=== PATIENT | male | born 1995 | race Caucasian/White ===

== ENCOUNTER 2025-01-02 19:21 | Emergency (ER) | payer SELFPAY ==
[2025-01-02] VITALS (17 sets, daily range): BP systolic 134–160; BP diastolic 84–89; PULSE 76–98; TEMP 36.9; O2SAT 98; BMI 31.5
--- NOTE | 2025-01-02 20:06 | ECG_ITS ---
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
--- NOTE | 2025-01-02 20:07 | ED.DIZZY1 ---
HPI - Dizziness General Chief Complaint: Dizziness Stated Complaint: DIZZINESS Time Seen by Provider: 01/02/25 20:00 Source: patient Mode of arrival: walk-in Limitations: language barrier History of Present Illness HPI Narrative: This 29-year-old male with no significant medical history presents for evaluation of dizziness and muscle spasms in his arms and legs. The patient works outside as a golf pro. He states he was outside all day today and despite drinking water and Gatorade he still became very dizzy. He feels better being inside were at school but is still having some muscle spasms. He denies any chest pain or shortness of breath. He has not passed out. He has no abdominal pain or back pain. He has not had any fever. He has no nausea vomiting or diarrhea. He denies any tobacco alcohol or drug use. Related Data Home Medications ?Medication ?Instructions ?Recorded ?Confirmed No Known Home Medications 01/02/25 01/02/25 Allergies Allergy/AdvReac Type Severity Reaction Status Date / Time No Known Drug Allergies Allergy Verified 01/02/25 19:39 Review of Systems ROS Status of ROS 10 or more systems reviewed and unremarkable except as noted in history and below Exam Narrative Exam Narrative: Vital signs and Nursing Notes reviewed: Patient is afebrile pulse is 98, blood pressure is minimally elevated 134/89, he is not hypoxic with pulse ox of 98% on room air General: Awake, alert, oriented, no acute distress, lying comfortably on the [id number] male, no distress noted he got excited HEENT: Normocephalic atraumatic, mucous membranes are slightly dry, no swelling of the tongue, uvula or pharyngeal soft tissues Chest: Lungs are clear to auscultation with good air entry, there is no wheezing rhonchi or rales appreciated no accessory muscle use, patient is speaking in complete sentences-no chest wall tenderness to palpation CVS: Regular rate and rhythm S1-S2, no murmurs rubs or gallops, pulses are brisk and equal bilaterally ABD: Soft, nondistended, nontender, no rebound guarding or rigidity, bowel sounds are normal, no pulsatile masses appreciated Extremities: Moving all extremities, no lower extremity tenderness or swelling noted, negative Homans' sign, pulses are brisk and equal bilaterally Skin: Normal in appearance without rash,pallor, petechiae or purpura Neuro: No focal deficits Constitutional Vital Signs, click to edit/add: Last Vital Signs Temp 98.4 F 01/02/25 19:31 Pulse 76 01/02/25 22:40 Resp 20 01/02/25 22:40 BP 160/84 H 01/02/25 22:03 Pulse Ox 98 01/02/25 19:31 O2 Del Method Room Air 01/02/25 19:31 Course Vital Signs Vital signs: Vital Signs Temperature 98.4 F 01/02/25 19:31 Pulse Rate 98 H 01/02/25 19:31 Respiratory Rate 16 01/02/25 19:31 Blood Pressure 134/89 01/02/25 19:31 Pulse Oximetry 98 01/02/25 19:31 Oxygen Delivery Method Room Air 01/02/25 19:31 Temperature 98.4 F 01/02/25 19:31 Pulse Rate 76 01/02/25 22:40 Respiratory Rate 20 01/02/25 22:40 Blood Pressure 160/84 H 01/02/25 22:03 Pulse Oximetry 98 01/02/25 19:31 Oxygen Delivery Method Room Air 01/02/25 19:31 MDM - Dizziness MDM Narrative Medical decision making narrative: This 29-year-old male presents for evaluation of dizziness with cramps in his arms and legs. The patient is from [facility] and is working locally as a golf pro. He was outside all day today in the 75 degree heat. He states that he thinks he drink enough fluids but was feeling dizzy and had cramps in his arms and legs so came to get checked out. He denies any chest pain or shortness of breath. He does not drink smoke or use any drugs. He is well-appearing. Upon arrival his vital signs were taken at triage. He was mildly hypertensive but had a normal pulse and is not hypoxic. His skin is mildly flushed and warm to the touch with mild degree of sun burn skin. EKG done upon arrival is a sinus rhythm with 84 bpm with a normal axis and no acute findings. An IV was placed and he was medicated with IV fluids. Routine labs are reviewed. He has a normal white count and hemoglobin. Electrolytes are normal with the exception of an elevated creatinine of 1.31. His initial troponin was 94.6. After these labs came back I reevaluated him and confirmed that he is not having any chest pain. Our conversation was assisted by an enriqueta on his phone that translates Upper Sorbian to Icelandic but I am also Icelandic-speaking to some degree. Repeat troponin was normal at 68.3. I did offer him admission for further IV fluids and management but he declined stating that he has to be at work at 4 AM and he will return to the emergency department if his symptoms recur. He was encouraged to drink plenty of fluids and stay out of the sun if possible. Lab Data Attestation: I reviewed the patient's lab results. Labs: Lab Results 01/02/25 01/02/25 Range/Units 20:35 22:31 WBC 11.4 H (4.0-11.0) 10^3/uL RBC 4.90 (4.70-6.10) 10^6/uL Hgb 14.9 (14.0-18.0) g/dL Hct 42.5 (42.0-54.0) % MCV 86.7 (80.0-94.0) fL MCH 30.4 (25.9-34.0) pg MCHC 35.1 (29.9-35.2) g/dL RDW 12.5 (11.0-15.0) % Plt Count 321 (150-450) 10^3/uL MPV 10.2 (9.5-13.5) fL Neut % (Auto) 71.2 (43.0-75.0) % Lymph % (Auto) 19.7 L (20.5-60.0) % Hayes % (Auto) 7.3 (1.7-12.0) % Eos % (Auto) 0.5 L (0.9-7.0) % Baso % (Auto) 0.5 (0.2-2.0) % Neut # (Auto) 8.1 H (1.4-6.5) 10^3/uL Lymph # (Auto) 2.3 (1.2-3.8) 10^3/uL Hayes # (Auto) 0.8 (0.3-0.8) 10^3/uL Eos # (Auto) 0.1 (0.0-0.7) 10^3/uL Baso # (Auto) 0.1 (0.0-0.1) 10^3/uL Abs Immat Gran (auto) 0.09 H (0.00-0.03) 10^3/uL Imm/Tot Granulo (auto) 0.8 H (0.0-0.5) % Sodium 141 (136-145) mmol/L Potassium 3.6 (3.5-5.1) mmol/L Chloride 103 (98-107) mmol/L Carbon Dioxide 28.0 (21.0-32.0) mmol/L Anion Gap 13.6 BUN 17.0 (7.0-18.0) mg/dL Creatinine 1.32 H (0.70-1.30) mg/dL Est GFR ( Amer) >60 (>=60 mL/min/1.73m^2) Est GFR (Non-Af Amer) >60 (>=60 mL/min/1.73m^2) BUN/Creatinine Ratio 12.9 Glucose 109 H (74-106) mg/dL Calcium 9.6 (8.5-10.1) mg/dL Total Bilirubin 0.6 (0.2-1.0) mg/dL AST 62 H (15-37) U/L ALT 141 H (16-63) U/L Alkaline Phosphatase 113 (46-116) U/L Troponin I High Sens 94.6 H* 68.3 (4.0-76.1) pg/mL Total Protein 8.0 (6.4-8.2) g/dL Albumin 3.8 (3.4-5.0) g/dL Globulin 4.2 g/dL Albumin/Globulin Ratio 0.9 ECG Data Attestation: I personally reviewed and interpreted this ECG as follows: (Sinus rhythm 84 bpm, normal axis, normal intervals, no acute ST segment elevation or T wave inversion) Discharge Plan Discharge Chief Complaint: Dizziness Clinical Impression: Acute dehydration, Heat cramp, initial encounter Patient Disposition: Home, Self-Care Time of Disposition Decision: 23:20 Condition: Good Prescriptions / Home Meds: No Action No Known Home Medications Print Language: Icelandic Instructions: Dehydration (ED), Liquids and Hydration for Athletes (ED), Muscle Cramp (ED) Referrals: Physician,Non-Staff, MD [Primary Care Provider] - 1 week
[2025-01-02] MEDS: 0.9 % SODIUM CHLORIDE 1,000 ML 1000 ML IV (20:30)
[2025-01-02 20:44] LABS: Basophils Absolute Auto 0.1 10^3/uL (0.0-0.1); Basophils Percent Auto 0.5 % (0.2-2.0); Eosinophils Absolute Auto 0.1 10^3/uL (0.0-0.7); Eosinophils Percent Auto 0.5 % (0.9-7.0); Hematocrit 42.5 % (42.0-54.0); Hemoglobin 14.9 g/dL (14.0-18.0); Immature Granulocytes Abs Auto 0.09 10^3/uL (0.00-0.03); Immature Granulocytes Pct Auto 0.8 % (0.0-0.5); Lymphocytes Absolute Auto 2.3 10^3/uL (1.2-3.8); Lymphocytes Percent Auto 19.7 % (20.5-60.0); Mean Corpuscular HGB Conc 35.1 g/dL (29.9-35.2); Mean Corpuscular Hemoglobin 30.4 pg (25.9-34.0); Mean Corpuscular Volume 86.7 fL (80.0-94.0); Mean Platelet Volume 10.2 fL (9.5-13.5); Monocytes Absolute Auto 0.8 10^3/uL (0.3-0.8); Monocytes Percent Auto 7.3 % (1.7-12.0); Neutrophils Absolute Auto 8.1 10^3/uL (1.4-6.5); Neutrophils Percent Auto 71.2 % (43.0-75.0); Platelet Count 321 10^3/uL (150-450); Red Cell Distribution Width 12.5 % (11.0-15.0); White Blood Count 11.4 10^3/uL (4.0-11.0)
[2025-01-02 21:02] LABS: Alanine Aminotransferase 141 U/L (16-63); Albumin Globulin Ratio 0.9; Albumin Level 3.8 g/dL (3.4-5.0); Alkaline Phosphatase 113 U/L (46-116); Anion Gap 13.6; Aspartate Amino Transferase 62 U/L (15-37); BUN Creatinine Ratio 12.9; Bilirubin Total 0.6 mg/dL (0.2-1.0); Calcium 9.6 mg/dL (8.5-10.1); Chloride 103 mmol/L (98-107); Estimated GFR (African America >60 (>=60 mL/min/1.73m^2); Estimated GFR (Non-African Ame >60 (>=60 mL/min/1.73m^2); Globulin 4.2 g/dL; Glucose 109 mg/dL (74-106); Potassium 3.6 mmol/L (3.5-5.1); Sodium 141 mmol/L (136-145)
[2025-01-02 21:05] LABS: Troponin I High Sensitivity 94.6 pg/mL (4.0-76.1)
[2025-01-02] MEDS: ASPIRIN 81 MG TAB.CHEW 324 MG PO (21:58)
[2025-01-02 23:07] LABS: Troponin I High Sensitivity 68.3 pg/mL (4.0-76.1)
--- NOTE | 2025-01-02 23:26 | PC.NURSE ---
reports dizziness after being in the sun aptel. patient has been trying to stay hydrated. rn used translator deaf as patient is georgian speaking. patient reports dizziness has resolved but still have musel cramping behind right arm. denies chest pain, SOB
== END 2025-01-02 23:35 | disposition home or self-care (01) ==
PROVIDERS: Emergency Provider Emergency Medicine
DX: E86.0 Dehydration (principal); T67.2XXA Heat cramp, initial encounter; X58.XXXA Exposure to other specified factors, initial encounter
CPT/HCPCS: 36415; 80053; 84484; 85025; 93005; 99285